=== PATIENT | male | born 1935 | race Hispanic/Latino ===

== ENCOUNTER → 2019-09-03 | Outpatient (CLI) | payer MEDICARE ==
[~2019-09-03] MED LIST: REGADENOSON 0.4 MG/5 ML SYR IV ONE
--- NOTE | 2019-09-04 21:40 | Myoview Stress Test ---
DATE OF STUDY: 09/03/2019 09:19:00 Stress Test - Treadmill ONLY PROCEDURE TITLE: Rest stress single isotope SPECT imaging with pharmacologic stress and gated SPECT imaging. INDICATION: Chest pain. PROCEDURE DETAIL: Pharmacologic stress testing was performed with regadenoson per the usual protocol. Heart rate was 77 beats per minute at rest and daphne to 82 beats per minute at stress. Blood pressure was 143/67 at rest and decreased to 135/68 during stress. This was a normal response for regadenoson. The baseline 12-lead electrocardiogram showed normal sinus rhythm with right bundle branch block. There were no ischemic changes noted throughout the stress protocol nor cardiac arrhythmias. Myocardial perfusion imaging was performed at rest following injection of 11 mCi of tetrofosmin. At peak pharmacologic effect, the patient was injected with 32.3 mCi of tetrofosmin. Gated post-stress tomographic imaging was performed. FINDINGS: The overall study quality was fair. The left ventricular cavity appear normal during rest and stress. SPECT images revealed normal myocardial perfusion. Gated SPECT imaging reveals normal myocardial thickening and wall motion. The calculated left ventricular ejection fraction was greater than 70%. IMPRESSION: Normal myocardial perfusion imaging. Normal left ventricular systolic function. DO KRISTIN Carpenter/[id number] /[id number]
== END ==
LOC: NM 08:56
PROVIDERS: ATTEND Internal Medicine
DX: I50.9 Heart failure, unspecified (principal); I25.10 Atherosclerotic heart disease of native coronary artery without angina pectoris; I48.91 Unspecified atrial fibrillation
CPT/HCPCS: 78452; 93017; 93306; A9502; J2785

== ENCOUNTER → 2022-07-12 | Outpatient (CLI) | payer MEDICARE ==
[~2022-07-12] MED LIST changes: +IOPAMIDOL 370 MG/ML 100 ML INFUS..BTL INJ ONE; -REGADENOSON 0.4 MG/5 ML SYR IV ONE; +SODIUM CHLORIDE 0.9% 250ML 250 ML ONE
[2022-07-12 15:52] LABS: CREATININE, SERUM 0.98 mg/dL (0.72-1.25)
== END ==
LOC: CT 15:31
PROVIDERS: ATTEND Urology
DX: R31.29 Other microscopic hematuria (principal)
CPT/HCPCS: 36415; 74178; 82565; 84520; J7050; Q9967

== ENCOUNTER → 2022-09-05 | Outpatient (CLI) | payer MEDICARE | LOC: RAD 14:00 | PROVIDERS: ATTEND Internal Medicine | DX: M54.50 Low back pain, unspecified (principal); M25.551 Pain in right hip | CPT/HCPCS: 72110 ==

== ENCOUNTER → 2023-04-01 | Outpatient (REF) | payer MEDICARE ==
[~2023-04-01] MED LIST changes: -IOPAMIDOL 370 MG/ML 100 ML INFUS..BTL INJ ONE; +LEVOFLOXACIN250 MG PO; -SODIUM CHLORIDE 0.9% 250ML 250 ML ONE
== END ==
LOC: RAD 13:33
PROVIDERS: ATTEND Internal Medicine
DX: M54.2 Cervicalgia (principal)
CPT/HCPCS: 72050

== ENCOUNTER 2023-04-14 20:44 | Emergency (ER) | payer MEDICARE ==
[~2023-04-14] VITALS: Ht 160 cm; Wt 73.5 kg
[~2023-04-14 20:44] MED LIST changes: +FINASTERIDE5 MG PO; +FLOMAX0.4 MG PO; +GLIPIZIDE10 MG; +HYDROCHLOROTHIA25 MG PO; +LOSARTAN POTAS100 MG PO; +METOPROLOL TART25 MG PO
[2023-04-14 20:50] VITALS: O2SAT 100
[2023-04-14] MEDS ORDERED: METHOCARBAMOL750 MG PO (21:12)
== END 2023-04-14 21:23 | disposition home or self-care (01) ==
LOC: ER 20:49
DX: M25.551 Pain in right hip (principal); M54.31 Sciatica, right side; I10 Essential (primary) hypertension; E11.9 Type 2 diabetes mellitus without complications; E78.5 Hyperlipidemia, unspecified; Z95.1 Presence of aortocoronary bypass graft
CPT/HCPCS: 99283

== ENCOUNTER → 2023-12-12 | Outpatient (REF) | payer MEDICARE ==
[~2023-12-12] MED LIST changes: +ASPIRIN EC81 MG PO; +ATORVASTATIN CA10 MG PO; +FUROSEMIDE40 MG PO; +METHOCARBAMOL750 MG PO; +OXYBUTYNIN CHLOR5 M1 PO; +XARELTO10 MG PO
== END ==
LOC: RAD 13:19
PROVIDERS: ATTEND Internal Medicine
DX: R05.9 Cough, unspecified (principal)
CPT/HCPCS: 71046

== ENCOUNTER 2024-01-01 21:06 | Emergency (ER) | payer MEDICARE ==
[~2024-01-01] VITALS: Ht 160 cm; Wt 74.8 kg
[2024-01-01 21:30] VITALS: PULSE 61; RESP 18; TEMP 98.1
[2024-01-01 22:11] VITALS: BP 170/81; PULSE 74; RESP 18; TEMP 98.5; O2SAT 100
== END 2024-01-01 21:20 | disposition home or self-care (01) ==
LOC: FSED 21:13
DX: R41.82 Altered mental status, unspecified (principal); R00.1 Bradycardia, unspecified; I48.20 Chronic atrial fibrillation, unspecified; I10 Essential (primary) hypertension; E11.9 Type 2 diabetes mellitus without complications; E78.5 Hyperlipidemia, unspecified; D68.9 Coagulation defect, unspecified; R94.31 Abnormal electrocardiogram [ECG] [EKG]; Z95.1 Presence of aortocoronary bypass graft; Z79.01 Long term (current) use of anticoagulants; Z86.79 Personal history of other diseases of the circulatory system
CPT/HCPCS: 80053; 81025; 85025; 93005; 99284

== ENCOUNTER → 2024-04-14 | Outpatient (REF) | payer MEDICARE | LOC: RAD 10:55 | PROVIDERS: ATTEND Internal Medicine | DX: M25.561 Pain in right knee (principal) ==

== ENCOUNTER 2024-06-16 22:52 | Emergency (ER) | payer MEDICARE ==
[~2024-06-16] VITALS: Ht 157.5 cm; Wt 73.5 kg
[2024-06-16 23:00] VITALS: PULSE 103; RESP 20; TEMP 97.6
[2024-06-17 00:58] VITALS: BP 150/76; O2SAT 97
== END 2024-06-17 00:55 | disposition home or self-care (01) ==
LOC: FSED 23:10
DX: N40.1 Benign prostatic hyperplasia with lower urinary tract symptoms (principal); R33.8 Other retention of urine; I10 Essential (primary) hypertension; E11.9 Type 2 diabetes mellitus without complications; I48.91 Unspecified atrial fibrillation; I25.10 Atherosclerotic heart disease of native coronary artery without angina pectoris; E78.5 Hyperlipidemia, unspecified; Z95.1 Presence of aortocoronary bypass graft; Z86.73 Personal history of transient ischemic attack (TIA), and cerebral infarction without residual deficits
CPT/HCPCS: 99283

== ENCOUNTER 2024-06-17 19:25 | Emergency (ER) | payer MEDICARE ==
[~2024-06-17] VITALS: Ht 157.5 cm; Wt 73.5 kg
[2024-06-17 20:51] LABS: BILIRUBIN,URINE NEGATIVE (NEGATIVE); CLARITY,URINE CLEAR (CLEAR); COLOR,URINE YELLOW (YELLOW); GLUCOSE, URINE NEGATIVE (NEGATIVE); KETONES,URINE NEGATIVE (NEGATIVE); LEUKOCYTE ESTERASE ,URINE NEGATIVE (NEGATIVE); NITRITE,URINE NEGATIVE (NEGATIVE); PH,URINE 7 (5 - 7); PROTEIN,URINE DIPSTICK NEGATIVE (NEGATIVE); URINE UROBILINOGEN 0.2 mg/dL (0.2 - 1)
[2024-06-17 20:54] LABS: WBC,URINE (MAN) 0-5 /HPF (0-5)
[2024-06-17 21:57] VITALS: PULSE 76; RESP 17; TEMP 97.2
[2024-06-17 22:18] VITALS: BP 155/75; PULSE 76; RESP 14; TEMP 97.2; O2SAT 100
== END 2024-06-17 22:24 | disposition home or self-care (01) ==
LOC: ER 19:35
DX: R33.9 Retention of urine, unspecified (principal); N30.91 Cystitis, unspecified with hematuria; K80.20 Calculus of gallbladder without cholecystitis without obstruction; K44.9 Diaphragmatic hernia without obstruction or gangrene; N40.0 Benign prostatic hyperplasia without lower urinary tract symptoms; N28.1 Cyst of kidney, acquired; I10 Essential (primary) hypertension; E11.9 Type 2 diabetes mellitus without complications; E78.5 Hyperlipidemia, unspecified; I48.91 Unspecified atrial fibrillation; Z86.73 Personal history of transient ischemic attack (TIA), and cerebral infarction without residual deficits; Z95.1 Presence of aortocoronary bypass graft
CPT/HCPCS: 51700; 74176; 81001; 87086; 99282

== ENCOUNTER → 2024-06-18 | Outpatient (REF) | payer MEDICARE | LOC: US 08:12 | PROVIDERS: ATTEND Urology | DX: R31.21 Asymptomatic microscopic hematuria (principal) | CPT/HCPCS: 76770; 76857 ==

== ENCOUNTER → 2024-06-18 | Outpatient (REF) | payer MEDICARE | LOC: MRI 08:09 | PROVIDERS: ATTEND Psychiatry & Neurology Clinical Neurophysiology | DX: F03.918 Unspecified dementia, unspecified severity, with other behavioral disturbance (principal); Z86.73 Personal history of transient ischemic attack (TIA), and cerebral infarction without residual deficits | CPT/HCPCS: 70551; 72100 ==

== ENCOUNTER 2024-06-21 04:03 | Emergency (ER) | payer MEDICARE ==
[~2024-06-21] VITALS: Ht 157.5 cm; Wt 73.5 kg
[2024-06-21 04:07] VITALS: PULSE 94; RESP 19; O2SAT 99
[2024-06-21 04:17] VITALS: TEMP 98.7
== END 2024-06-21 04:45 | disposition home or self-care (01) ==
LOC: ER 04:13
DX: Z46.6 Encounter for fitting and adjustment of urinary device (principal); N40.1 Benign prostatic hyperplasia with lower urinary tract symptoms; R33.8 Other retention of urine; I10 Essential (primary) hypertension; E11.9 Type 2 diabetes mellitus without complications; E78.5 Hyperlipidemia, unspecified; I48.91 Unspecified atrial fibrillation; Z86.73 Personal history of transient ischemic attack (TIA), and cerebral infarction without residual deficits; Z95.1 Presence of aortocoronary bypass graft
CPT/HCPCS: 99282

== ENCOUNTER 2024-07-03 20:41 | Emergency (ER) | payer MEDICARE ==
[~2024-07-03] VITALS: Ht 157.5 cm; Wt 73.5 kg
[2024-07-03 20:58] VITALS: PULSE 98; RESP 17; TEMP 99.8
[2024-07-03 21:15] LABS: CLARITY,URINE SL CLOUDY (CLEAR); COLOR,URINE YELLOW (YELLOW); LEUKOCYTE ESTERASE ,URINE MODERATE (NEGATIVE); NITRITE,URINE NEGATIVE (NEGATIVE); PH,URINE 8.5 (5 - 7); PROTEIN,URINE DIPSTICK 1+ (NEGATIVE)
[2024-07-03 21:16] LABS: BILIRUBIN,URINE NEGATIVE (NEGATIVE); GLUCOSE, URINE NEGATIVE (NEGATIVE); KETONES,URINE NEGATIVE (NEGATIVE); URINE UROBILINOGEN 1 mg/dL (0.2 - 1)
[2024-07-03 21:21] LABS: BACTERIA,URINE RARE /HPF; WBC,URINE (MAN) >50 /HPF (0-5)
[2024-07-03] MEDS ORDERED: CEFDINIR300 MG PO (21:34)
[2024-07-03] MEDS: CEFDINIR 300 MG CAP PO ONE ×2 (21:36→22:01)
[2024-07-03] MEDS ORDERED: MACROBID 100 M100 MG PO (21:41)
[2024-07-03] MEDS ORDERED: NITROFURANTOIN MACROCRYSTALS 100 MG CAP PO ONE (21:45)
[2024-07-03 22:06] VITALS: BP 143/68; PULSE 93; RESP 17; TEMP 99.7; O2SAT 98
== END 2024-07-03 22:15 | disposition home or self-care (01) ==
LOC: ER 21:02
DX: R30.0 Dysuria (principal); N39.0 Urinary tract infection, site not specified; I10 Essential (primary) hypertension; E11.9 Type 2 diabetes mellitus without complications; E78.5 Hyperlipidemia, unspecified; I48.91 Unspecified atrial fibrillation; Z86.73 Personal history of transient ischemic attack (TIA), and cerebral infarction without residual deficits; Z95.1 Presence of aortocoronary bypass graft
CPT/HCPCS: 81001; 87086; 87186; 99283